=== PATIENT | female | born 1960 | race Caucasian/White ===

== ENCOUNTER 2018-05-03 13:24 | Outpatient (CLI) | payer OTHER ==
--- NOTE | 2018-05-03 14:55 | BD ---
DEXA BONE DENSITY STUDY: HISTORY: Postmenopausal. FINDINGS: Lumbar Spine: BMD (g/cm2) L1 0.792 T-Score: -1.8 L2 0.836 T-Score: -1.7 L3 0.827 T-Score: -2.3 L4 0.803 T-Score: -2.3 L1-L4 0.814 T-Score: -2.1 Femoral Neck: 0.569 T-Score: -2.5 Total Femur: 0.806 T-Score: -1.1 Impression: Osteoporosis of left femoral neck and osteopenia of the lumbar spine. POS: RUDDY
== END 2018-05-03 13:25 | disposition home or self-care (01) ==
LOC: BICMAMMO 13:24
PROVIDERS: ATTEND Obstetrics & Gynecology
DX: Z12.31 Encounter for screening mammogram for malignant neoplasm of breast (principal); Z13.820 Encounter for screening for osteoporosis; M81.0 Age-related osteoporosis without current pathological fracture; M85.88 Other specified disorders of bone density and structure, other site; R92.1 Mammographic calcification found on diagnostic imaging of breast; Z79.890 Hormone replacement therapy
CPT/HCPCS: 77063; 77067; 77080

== ENCOUNTER 2019-12-17 14:37 | Outpatient (CLI) | payer OTHER ==
--- NOTE | 2019-12-17 15:53 | MMO ---
Bilateral MAMMO Bilat Screen [facility]. CLINICAL HISTORY: Patient is 59 years old and is seen for screening. The patient has no family history of breast cancer. The patient has no personal history of cancer. VIEWS: The views performed were: bilateral craniocaudal with tomosynthesis and bilateral mediolateral oblique with tomosynthesis. FILMS COMPARED: The present examination has been compared to prior imaging studies performed at [facility] on 05/22/2014, 07/14/2015, 07/27/2016 and 05/03/2018. This study has been interpreted with the assistance of computer-aided detection. MAMMOGRAM FINDINGS: The breasts are heterogeneously dense, which could obscure a lesion on mammography. There are benign appearing calcifications seen in both breasts. There are no suspicious masses, suspicious calcifications, or new areas of architectural distortion. IMPRESSION: THERE IS NO MAMMOGRAPHIC EVIDENCE OF MALIGNANCY. A ROUTINE FOLLOW-UP MAMMOGRAM IN 1 YEAR IS RECOMMENDED. THE RESULTS OF THIS EXAM WERE SENT TO THE PATIENT. ACR BI-RADS Category 2 - Benign finding MAMMOGRAPHY NOTE: 1. A negative mammogram report should not delay a biopsy if a dominant of clinically suspicious mass is present. 2. Approximately 10% to 15% of breast cancers are not detected by mammography. 3. Adenosis and dense breasts may obscure an underlying neoplasm. Reported by: FISH SANFORD MD Electonically Signed: [id number]
--- NOTE | 2019-12-17 16:23 | ULT ---
Thyroid sonogram HISTORY: Goiter. COMPARISON: 06/25/2009. FINDINGS: Right thyroid lobe measures up to 4.9 cm. At the superficial margin centrally is a very sub tle well-circumscribed oval hypoechoic isoechoic nodule that is 0.7 cm length by 0.3 cm depth. There are 2 additional smaller isoechoic nodules. At the isthmus, a well-circumscribed oval partially cystic otherwise isoechoic nodule is 0.8 cm lengt h by 0.3 cm depth. Left thyroid lobe is 4.8 cm. Multiple small nonspecific isoechoic solid and partially cystic nodules are present. The largest is at the posterior aspect of the central portion, measuring up to 1.2 cm length by 0.4 cm depth. IMPRESSION : Multiple small nonspecific bilateral thyroid nodules, stable. Given the long-term stability, no shawn nuing follow-up is required.
== END 2019-12-17 14:38 | disposition home or self-care (01) ==
LOC: BICMAMMO 14:37
PROVIDERS: ATTEND Family Medicine
DX: Z12.31 Encounter for screening mammogram for malignant neoplasm of breast (principal); E04.9 Nontoxic goiter, unspecified; E04.2 Nontoxic multinodular goiter; Z80.3 Family history of malignant neoplasm of breast
CPT/HCPCS: 76536; 77063; 77067

== ENCOUNTER 2021-05-07 13:56 | Outpatient (CLI) | payer OTHER | END 2021-05-07 13:57 | disposition home or self-care (01) | LOC: BICMAMMO 13:56 | PROVIDERS: ATTEND Family Medicine | DX: Z12.31 Encounter for screening mammogram for malignant neoplasm of breast (principal); Z13.820 Encounter for screening for osteoporosis; Z78.0 Asymptomatic menopausal state | CPT/HCPCS: 77063; 77067; 77080 ==

== ENCOUNTER 2024-11-21 09:26 | Outpatient (CLI) | payer MEDICARE | END 2024-11-21 09:27 | disposition home or self-care (01) | LOC: BICMAMMO 09:26 | PROVIDERS: ATTEND Physician Assistant | DX: Z78.0 Asymptomatic menopausal state (principal); M81.0 Age-related osteoporosis without current pathological fracture | CPT/HCPCS: 77080 ==